=== PATIENT | female | born 1990 | race Caucasian/White ===

== ENCOUNTER 2018-12-28 16:41 | Inpatient (IN) ==
[2018-12-28 17:20] LABS: Basophils % 0.3 % (0.0-0.8); Eosinophils # 0.2 10*3/uL (0.0-0.87); Eosinophils % 1.6 % (0.00-10.9); Hematocrit 32.7 VOL% (35.7-47.0); Hemoglobin 10.7 GM/DL (12.0-16.0); Immature Granulocytes % 0.5 %; Immature Granulocytes Absolute 0.05 #; Lymphocytes # 2.1 10*3/uL (1.4-4.0); Lymphocytes % 20.5 % (21.3-54.2); Mean Corpuscular HGB Conc 32.7 GM/DL (32-36); Mean Corpuscular Volume 79.2 FL (87-102); Mean Platelet Volume 10.4 FL (9.6-12.0); Monocytes % 7.3 % (1.7-12.7); Neutrophils % 69.8 % (38.7-73.9); Platelet Count 296 T/CUMM (130-400); Red Blood Count 4.13 MC/CUMM (3.8-5.5); Red Cell Distribution Width 14.3 % (9.3-17.3); White Blood Count 10.2 T/CUMM (4-12)
[2018-12-28 17:39] LABS: INR 0.9; PT Patient Result 9.4 SECS (9.6-12.2); Partial Thromboplastin Time 26.8 SECS (20.8-36.0)
[2018-12-28 17:44] LABS: Alanine Aminotransferase 21 U/L (13-56); Albumin 2.5 G/DL (3.4-5.0); Alkaline Phosphatase 187 U/L (45-117); Aspartate Amino Transferase 13 U/L (0-37); Bilirubin,Total < 0.39 MG/DL (0.2-1.0); Blood Urea Nitrogen 9 MG/DL (7-18); Estimated Glom Filtration Rate 178 ML/MIN; Glucose 79 MG/DL (74-106); Osmolality,Calculated 270.8 MOS/KG (273-304)
[2018-12-28 18:20] LABS: Apearance,Urine CLEAR (Clear); Bacteria,Urine Occasional /HPF (Few); Bilirubin,Urine Negative (Negative); Blood, Urine Small mg/dL (Negative); Glucose,Urine (UA) Negative (Negative); Ketones,Urine Negative (Negative); Nitrite,Urine Negative (Negative); Protein,Urine 30 MG/DL; RBC,Urine <1 /HPF (0-4); Squamous Epithelial Cell,Urine Occasional /HPF (0-10); Urine Color Straw (Yellow); Urine Specific Gravity 1.009 (1.001-1.035); Urine Urobilinogen < 2.0 EU/DL (0.2-1.0); WBC,Urine 1 /HPF (0-6)
[2018-12-28] MEDS ORDERED: BUTORPHANOL 2 MG/ML VIAL IV PRN (18:41)
[2018-12-28] MEDS ORDERED: LACTATED RINGERS 1,000 ML IV PRN (18:41)
[2018-12-28] MEDS ORDERED: ONDANSETRON 4 MG/2 ML VIAL IV PRN (18:41)
[2018-12-28] MEDS ORDERED: OXYTOCIN/LR 20 UNIT/1,000 ML BAG IV SCH (19:00)
[2018-12-28] MEDS ORDERED: ZALEPLON 5 MG CAPSULE PO PRN (19:04)
[2018-12-28] MEDS: LABETALOL 100 MG TABLET PO SCH (20:56)
[2018-12-29] MEDS: LACTATED RINGERS 1,000 ML IV SCH ×2 (05:17→19:34)
[2018-12-29] MEDS: LABETALOL 100 MG TABLET PO SCH ×2 (08:55→21:02)
[2018-12-29] MEDS ORDERED: FAMOTIDINE 20 MG/2 ML VIAL IV ONE (16:54)
[2018-12-29] MEDS ORDERED: hydrOXYzine HCL 25 MG/1 ML VIAL IM PRN (16:54)
[2018-12-29] MEDS ORDERED: ePHEDrine 50 MG/ML AMP IV PRN (16:54)
[2018-12-29] MEDS ORDERED: PROMETHAZINE 25 MG/1 ML VIAL IM ONE (16:54)
[2018-12-29] MEDS ORDERED: CITRIC ACID/SODIUM CITRATE 30 ML UDCUP PO ONE (16:54)
[2018-12-29] MEDS ORDERED: ONDANSETRON 4 MG/2 ML VIAL IV ONE (16:54)
[2018-12-29] MEDS ORDERED: NALOXONE 0.4 MG/ML VIAL IV PRN (16:54)
[2018-12-29] MEDS ORDERED: diphenhydrAMINE 50 MG/1 ML VIAL IV PRN ×2 (16:54)
[2018-12-29] MEDS: ACETAMINOPHEN 325 MG TABLET PO PRN (17:31)
[2018-12-29] MEDS: fentaNYL 2 MCG/ROPIV 0.2% EPID 100 ML EPIDURAL SCH (17:38)
[2018-12-30] MEDS: fentaNYL 2 MCG/ROPIV 0.2% EPID 100 ML EPIDURAL SCH (02:16)
[2018-12-30] MEDS ORDERED: AMPICILLIN INJ 2,000 MG in SODIUM CHLORIDE 0.9% 100 ML IV SCH (05:00)
[2018-12-30] MEDS: LACTATED RINGERS 1,000 ML IV SCH (09:12)
[2018-12-30] MEDS: ACETAMINOPHEN 325 MG TABLET PO PRN (11:04)
[2018-12-30] MEDS: LABETALOL 100 MG TABLET PO SCH ×2 (11:04→23:36)
[2018-12-30] MEDS: IBUPROFEN 800 MG TABLET PO PRN (15:46)
[2018-12-30] MEDS: oxyCODONE/ACETAMINOPHEN 5-325 MG TABLET PO PRN (18:51)
[2018-12-30] MEDS ORDERED: BENZOCAINE 20%/MENTHOL 0.5% SPRAY 56 GM CAN TOP PRN (21:44)
[2018-12-31] MEDS: oxyCODONE/ACETAMINOPHEN 5-325 MG TABLET PO PRN ×2 (02:45→19:48)
[2018-12-31] MEDS: IBUPROFEN 800 MG TABLET PO PRN ×2 (06:27→14:12)
[2018-12-31 06:35] LABS: Basophils % 0.2 % (0.0-0.8); Eosinophils # 0.1 10*3/uL (0.0-0.87); Eosinophils % 0.5 % (0.00-10.9); Hematocrit 24.9 VOL% (35.7-47.0); Immature Granulocytes Absolute 0.15 #; Lymphocytes # 1.2 10*3/uL (1.4-4.0); Lymphocytes % 8.2 % (21.3-54.2); Mean Corpuscular HGB Conc 32.1 GM/DL (32-36); Mean Corpuscular Volume 79.6 FL (87-102); Mean Platelet Volume 10.2 FL (9.6-12.0); Monocytes % 6.8 % (1.7-12.7); Neutrophils % 83.3 % (38.7-73.9); Platelet Count 221 T/CUMM (130-400); Red Blood Count 3.13 MC/CUMM (3.8-5.5); Red Cell Distribution Width 14.7 % (9.3-17.3); White Blood Count 14.8 T/CUMM (4-12)
[2018-12-31] MEDS: DOCUSATE SODIUM 100 MG CAPSULE PO SCH ×2 (09:16→21:06)
[2018-12-31] MEDS: LABETALOL 100 MG TABLET PO SCH (09:17)
[2018-12-31] MEDS: FERROUS SULFATE 325 MG TABLET PO SCH (21:06)
[2019-01-01] MEDS: IBUPROFEN 800 MG TABLET PO PRN ×2 (05:00→12:23)
[2019-01-01 07:44] VITALS: BP 131/66
[2019-01-01] MEDS: FERROUS SULFATE 325 MG TABLET PO SCH (10:07)
[2019-01-01] MEDS: DOCUSATE SODIUM 100 MG CAPSULE PO SCH (10:07)
[2019-01-01] MEDS ORDERED: HYDROCORTISONE 2.5% RECTAL CREAM 30 GM TUBE TOP PRN (12:30)
[2019-01-01] MEDS ORDERED: WITCH HAZEL PADS 100/JAR TOP PRN (12:44)
== END 2019-01-01 15:00 | disposition home or self-care (01) | DRG 807 ==
LOC: N.LDOUT 16:41 → N.LD 16:46 → N.OB 12-30 17:48
PROVIDERS: ADMIT Obstetrics & Gynecology; ATTEND Obstetrics & Gynecology